=== PATIENT | male | born 1950 | race Caucasian/White ===

== ENCOUNTER 2021-07-16 07:55 | Outpatient (CLI) | payer MEDICARE, OTHER, SELFPAY ==
--- NOTE | ~2021-07-16 | MR_ITS ---
EXAMINATION: MR cervical spine wo con EXAM DATE: 07/16/2021 08:54 INDICATION: abnormal reflexes. 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 Chronic neck pain, increasing in intensit y. TECHNIQUE: Multi-sequential, multiplanar MR images of the cervical spine were obtained without contra st. Axial T2, axial T2 MERGE sequence. Sagittal T1, T2, T2 fat saturation images also obtained. Th ere is no prior study for comparison. FINDINGS: There is moderate to severe reversal of normal cervical lordosis. There is osseous fusion of the C6 and 7 vertebral bodies and facet joints. Mild diffuse loss of vertebral body height. There is moderate to severe disc disease C3-4, moderate at C7-T1. The spinal cord signal intensity and intr insic morphology is normal. Cord is being flattened at C3-4, cord compression which is likely chronic . Cervicomedullary junction is normal in appearance. Paraspinal soft tissue is unremarkable. Level by level evaluation: C2-C3: Disc does not extend beyond the endplate margin. Uncovertebral joint arthropathy: Mild bilateral. Facet joint arthropathy: Severe right, mild left. Neural foraminal stenosis: Moderate right. Central canal stenosis: Mild. C3-C4: There is a mild to moderate diffuse disc bulge. Uncovertebral joint arthropathy: Severe bilateral. Facet joint arthropathy: Moderate to severe right, moderate left. Neural foraminal stenosis: Severe right, moderate to severe left. Central canal stenosis: Moderate . Central canal measures 4.5 mm in mid sagittal AP diameter . C4-C5: There is a mild diffuse disc bulge. Uncovertebral joint arthropathy: Moderate bilateral. Facet joint arthropathy: Moderate right, mild left. Neural foraminal stenosis: Mild to moderate left, mild right. Central canal stenosis: Mild. C5-C6: There is a minimal diffuse disc bulge. Uncovertebral joint arthropathy: Moderate bilateral. Facet joint arthropathy: Mild to moderate right, mild left. Neural foraminal stenosis: Mild right. Central canal stenosis: No stenosis. C6-C7: Congenital fusion Uncovertebral joint arthropathy: Severe but fused left, moderate to severe right. Facet joint arthropathy: Fused. Neural foraminal stenosis: Mild to moderate bilateral. Central canal stenosis: No stenosis. C7-T1: There is a mild diffuse disc bulge. Uncovertebral joint arthropathy: Moderate to severe bilateral. Facet joint arthropathy: Moderate left, mild to moderate right. Neural foraminal stenosis: Moderate to severe left, mild to moderate right. Central canal stenosis: No stenosis. IMPRESSION: 1. Chronic cord compression at C3-4; recommend orthopedic consult. 2. Advanced cervical spondylosis as above. 3. Kyphosis. Reviewed, dictated and finalized at location A.
== END 2021-07-16 07:56 | disposition home or self-care (01) ==
LOC: ANHIMG 08:01
PROVIDERS: PCP Internal Medicine
DX: R29.2 Abnormal reflex (principal); M47.892 Other spondylosis, cervical region
CPT/HCPCS: 72141